=== PATIENT | female | born 2000 | race Caucasian/White ===

== ENCOUNTER 2018-09-14 02:28 | Emergency (ER) | payer BC, MEDICAID ==
[~2018-09-14] VITALS: Ht 154.9 cm; Wt 102.1 kg
--- NOTE | 2018-09-14 02:53 | NUR ---
After talking with ed DR, pt decided to go to [facility] po to see her information systems coordinator. pt left before signing paperwork.
--- NOTE | 2018-09-14 02:56 | ED GU-Female ---
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 She says she was having contraction 5 minutes apart yesterday with her OB doctor and they let her go and told her to to monitor her contractions closely. She says that she noted a gush of blood earlier this evening. Her contractions have not changed as they're still 5 minutes apart and she is not having increased pain or loss of fluid besides a gush of blood. heart tones were done and they were in the 140s. She does not appear to be in active labor. She said that she called her OB nurse and they told her to come here. Allergies and Home Medications Patient Home Medication List Home Medication List Reviewed: Yes Review of Systems Review of Systems Constitutional: no symptoms reported EENTM: no symptoms reported Respiratory: no symptoms reported Cardiovascular: no symptoms reported Gastrointestinal: no symptoms reported Genitourinary: other (vaginal bleeding) Musculoskeletal: no symptoms reported Psychiatric/Neurological: No Symptoms Reported Past Xnmpecy-Okonsp-Fyvfiw Hx Patient Social History Recent Foreign Travel: No Contact w/Someone Who Travel: No Physical Exam Vital Signs Capillary Refill : Height, Weight, BMI Height: '" Weight: lbs. oz. kg; BMI Method: General Appearance: WD/WN, no apparent distress Neck: full range of motion Cardiovascular: normal peripheral pulses Respiratory: no respiratory distress Gastrointestinal: non tender, soft Neurologic/Psychiatric: no motor/sensory deficits Progress/Results/Core Measures Suspected Sepsis SIRS Temperature: Pulse: Respiratory Rate: Blood Pressure / Mean: Results/Orders Vital Signs/I&O Capillary Refill : Progress Note : Progress Note Patient is 39 weeks and said she saw a gush of blood. I told her this could be anything from normal labor to placenta abruption to placenta previa. We have no ultrasound available here and we also have no OB capability. I asked her for the phone number for her OB facility as I told her she would need to be emergently transferred to [facility] where her OB is located at for further evaluation. She refused this stating that she would just drive straight to [facility]. I advised against this as she could be having an obstetric emergency and needed EMS transfer they could further monitor and treat her. If she starts bleeding excessively she would be in her own car and not have proper medical treatment. She did not seem to worried and that I asked her again if s he was sure she saw blood and she confirmed yes that she saw a gush of blood. I told her she should be worried and be seeking obstetric care immediately. I told her I would be willing to transfer her to [facility] or the closest obstetric facility and again she refused. I told her she could be putting the fetus and herself at harm including and disability. Patient accepted the risks of and disability of both herself and the fetus by leaving against my recommendations. Patient walked out of the room right after I walked out of the room without getting discharge paperwork or signing out AGAINST MEDICAL ADVICE. Departure Impression Primary Impression: Vaginal bleeding during Disposition: 07 AGAINST MEDICAL ADVICE Condition: Unchanged Departure-Patient Inst. Referrals: NO,LOCAL PHYSICIAN (PCP/Family) Primary Care Physician BONNIE BUENO DO Sep 14, 2018 02:55
[2018-09-14 03:03] VITALS: BP 118/80
== END 2018-09-14 03:05 | disposition left against medical advice (07) ==
LOC: ER FS 02:32
DX: O46.93 Antepartum hemorrhage, unspecified, third trimester (principal); Z3A.39 39 weeks gestation of pregnancy
CPT/HCPCS: 99282

== ENCOUNTER 2018-09-24 09:52 | Emergency (ER) | payer BC, MEDICAID ==
[~2018-09-24] VITALS: Ht 154.9 cm; Wt 89.4 kg
[2018-09-24] MEDS ORDERED: LACTATED RINGERS 1,000 ML IV STA (10:34)
[2018-09-24 10:47] LABS: BASOPHILS # (AUTO) 0.1 10^3/uL (0.0-0.1); BASOPHILS % (AUTO) 1 % (0-10); EOSINOPHILS # (AUTO) 0.2 10^3/uL (0.0-0.3); EOSINOPHILS % (AUTO) 2 % (0-10); HEMATOCRIT 42 % (35-52); LYMPHOCYTES # (AUTO) 1.7 X 10^3 (1.0-4.0); LYMPHOCYTES % (AUTO) 19 % (12-44); MEAN CORPUSCULAR HEMOGLOBIN 26 PG (25-34); MEAN CORPUSCULAR HGB CONC 34 G/DL (32-36); MEAN CORPUSCULAR VOLUME 76 FL (80-99); MEAN PLATELET VOLUME 8.5 FL (7.4-10.4); MONOCYTES # (AUTO) 0.5 X 10^3 (0.0-1.0); MONOCYTES % (AUTO) 6 % (0-12); NEUTROPHILS # (AUTO) 6.6 X 10^3 (1.8-7.8); NEUTROPHILS % (AUTO) 73 % (42-75); PLATELET COUNT 333 10^3/uL (130-400); RED CELL DISTRIBUTION WIDTH 14.5 % (10.0-14.5)
--- NOTE | 2018-09-24 10:53 | ED General ---
General Chief Complaint: Dizziness/Syncope Stated Complaint: DIZZINESS Nursing Triage Note: Pt ambulatory to rm 10. Pt reports feeling dizzy, nauseated, and having a syncopal episode. Pt feels as if "my head was banging against the wall when I passed out." Pt reports hitting L side of head on wall. Pt reports uncomplicated vaginal delivery 1.5 weeks ago. Nursing Sepsis Screen: No Definite Risk Source of Information: Patient Exam Limitations: No Limitations History of Present Illness Date Seen by Provider: Sep 24, 2018 Time Seen by Provider: 10:26 Initial Comments Reports feeling dizzy and nauseated. She has had an episode of vomiting that was dry heaves. Feels faint and states that she passed out. No injury. She did have vaginal delivery 10 days ago. She is currently breast-feeding. She has had vaginal bleeding after the delivery that has decreased but sometimes will have increasing amount but overall is decreasing. Denies foul-smelling vaginal discharge. Denies dysuria or diarrhea. Timing/Duration: 12-24 Hours, Intermittent Severity: Moderate Associated Systoms: No Chest Pain, No Cough, No Fever/Chills; Nausea/Vomiting; No Shortness of Air; Syncope, Weakness Allergies and Home Medications Allergies Coded Allergies: No Known Drug Allergies (Unverified , 09/24/18) Patient Home Medication List Home Medication List Reviewed: Yes Review of Systems Review of Systems Constitutional: see HPI; No chills, No fever EENTM: no symptoms reported Respiratory: no symptoms reported Cardiovascular: No chest pain; syncope Gastrointestinal: abdominal pain (suprapubic), nausea, vomiting Genitourinary: No dysuria, No frequency : No Musculoskeletal: no symptoms reported Skin: no symptoms reported All Other Systems Reviewed Negative Unless Noted: Yes Past Scgesra-Kiwncv-Kmvcha Hx Past Med/Social Hx: Reviewed Nursing Past Med/Soc Hx Patient Social History Alcohol Use: Denies Use Recreational Drug Use: No 2nd Hand Smoke Exposure: No Recent Foreign Travel: No Contact w/Someone Who Travel: No Recent Infectious Disease Expo: No Recent Hopitalizations: No Seasonal Allergies Seasonal Allergies: No Past Medical History Surgeries: Yes Tonsillectomy Respiratory: No Cardiac: No Neurological: No Genitourinary: No Gastrointestinal: No Musculoskeletal: No Endocrine: No HEENT: No Cancer: No Psychosocial: No Integumentary: No Blood Disorders: No Adverse Reaction/Blood Tranf: No Family Medical History Reviewed Nursing Family Hx Physical Exam Vital Signs Vital Signs - First Documented 09/24/18 10:11 Temp 97.9 Pulse 78 Resp 18 B/P (MAP) 114/78 (90) Pulse Ox 97 O2 Delivery Room Air Capillary Refill : Less Than 3 Seconds Height, Weight, BMI Height: 5'1.00" Weight: 197lbs. oz. 89.930976si; BMI Method:Stated General Appearance: No Apparent Distress, WD/WN HEENT: PERRL/EOMI, Pharynx Normal Neck: Non Tender, Supple Respiratory: Lungs Clear, Normal Breath Sounds Cardiovascular: Regular Rate, Rhythm, No Murmur Gastrointestinal: Non Tender, Soft Back: Normal Inspection, No CVA Tenderness, No Vertebral Tenderness Extremity: Normal Range of Motion, Non Tender Neurologic/Psychiatric: Alert, Oriented x3 Skin: Normal Color, Warm/Dry Progress/Results/Core Measures Suspected Sepsis Recent Fever Within 48 Hours: No Infection Criteria Present: None New/Unexplained Altered Menta: No Sepsis Screen: No Definite Risk SIRS Temperature:97.9 Pulse: 78 Respiratory Rate: 18 Laboratory Tests 09/24/18 10:20: White Blood Count 9.0 Blood Pressure 114 /78 Mean: 90 Laboratory Tests 09/24/18 10:20: Creatinine 0.77, Platelet Count 333, Total Bilirubin 0.4 Results/Orders Lab Results Laboratory Tests Test 09/24/18 10:20 09/24/18 10:40 Range/Units White Blood Count 9.0 4.3-11.0 10^3/uL Red Blood Count 5.48 4.35-5.85 10^6/uL Hemoglobin 14.0 11.5-16.0 G/DL Hematocrit 42 35-52 % Mean Corpuscular Volume 76 L 80-99 FL Mean Corpuscular Hemoglobin 26 25-34 PG Mean Corpuscular Hemoglobin Concent 34 32-36 G/DL Red Cell Distribution Width 14.5 10.0-14.5 % Platelet Count 333 130-400 10^3/uL Mean Platelet Volume 8.5 7.4-10.4 FL Neutrophils (%) (Auto) 73 42-75 % Lymphocytes (%) (Auto) 19 12-44 % Monocytes (%) (Auto) 6 0-12 % Eosinophils (%) (Auto) 2 0-10 % Basophils (%) (Auto) 1 0-10 % Neutrophils # (Auto) 6.6 1.8-7.8 X 10^3 Lymphocytes # (Auto) 1.7 1.0-4.0 X 10^3 Monocytes # (Auto) 0.5 0.0-1.0 X 10^3 Eosinophils # (Auto) 0.2 0.0-0.3 10^3/uL Basophils # (Auto) 0.1 0.0-0.1 10^3/uL Sodium Level 138 135-145 MMOL/L Potassium Level 4.5 3.6-5.0 MMOL/L Chloride Level 107 98-107 MMOL/L Carbon Dioxide Level 20 L 21-32 MMOL/L Anion Gap 11 5-14 MMOL/L Blood Urea Nitrogen 16 7-18 MG/DL Creatinine 0.77 0.60-1.30 MG/DL Estimat Glomerular Filtration Rate > 60 BUN/Creatinine Ratio 21 Glucose Level 96 70-105 MG/DL Calcium Level 9.6 8.5-10.1 MG/DL Corrected Calcium 9.6 8.5-10.1 MG/DL Magnesium Level 2.3 1.8-2.4 MG/DL Total Bilirubin 0.4 0.1-1.0 MG/DL Aspartate Amino Transf (AST/SGOT) 40 H 5-34 U/L Alanine Aminotransferase (ALT/SGPT) 53 0-55 U/L Alkaline Phosphatase 239 H 40-136 U/L C-Reactive Protein High Sensitivity 1.14 H 0.00-0.50 MG/DL Total Protein 7.0 6.4-8.2 GM/DL Albumin 4.0 3.2-4.5 GM/DL Urine Color YELLOW Urine Clarity CLEAR Urine pH 5 5-9 Urine Specific [place] 1.020 1.016-1.022 Urine Protein 2+ H NEGATIVE Urine Glucose (UA) NEGATIVE NEGATIVE Urine Ketones NEGATIVE NEGATIVE Urine Nitrite NEGATIVE NEGATIVE Urine Bilirubin NEGATIVE NEGATIVE Urine Urobilinogen NORMAL NORMAL MG/DL Urine Leukocyte Esterase 3+ H NEGATIVE Urine RBC (Auto) 5+ H NEGATIVE Urine RBC 2-5 H /HPF Urine WBC 25-50 H /HPF Urine Squamous Epithelial Cells 0-2 /HPF Urine Renal Epithelial Cells NONE /HPF Urine Crystals NONE /LPF Urine Bacteria MODERATE H /HPF Urine Casts PRESENT /LPF Urine Hyaline Casts 5-10 H /LPF Urine Granular Casts 0-2 H /LPF Urine White Blood Cell Casts RARE H /LPF Urine Mucus LARGE H /LPF Urine Culture Indicated YES My Orders Orders - SIMA ARMANDO MD Cbc With Automated Diff (09/24/18 10:34) Comprehensive Metabolic Panel (09/24/18 10:34) Hs C Reactive Protein (09/24/18 10:34) Magnesium (09/24/18 10:34) Ua Culture If Indicated (09/24/18 10:34) Us Pelvic (Non Ob)88983 (09/24/18 10:34) Lactated Ringers (Lr 1000 Ml Iv Solution (09/24/18 10:34) Ed Iv/Invasive Line Start (09/24/18 10:34) Urine Culture (09/24/18 10:40) Vital Signs/I&O 09/24/18 10:11 Temp 97.9 Pulse 78 Resp 18 B/P (MAP) 114/78 (90) Pulse Ox 97 O2 Delivery Room Air Capillary Refill : Less Than 3 Seconds Blood Pressure Mean: 90 Progress Note : Progress Note Seen and evaluated. IV, labs, UA, ultrasound pelvis and normal saline 1 L bolus ordered. Monitor patient. 1200: I reviewed labs and ultrasound findings with the patient and family. I have answered all questions. Patient is feeling better currently. I do believe there is a component of dehydration and urinary tract infection. No findings concerning for significant bacterial infection or uterine infection currently and there is no findings consistent with retained products of conception. We will treat urinary tract infection and we did discuss hydration. Discharged home with return precautions. Patient and family verbalize understanding instructions and agreement with plan. Diagnostic Imaging Diagonstic Imaging: Ultrasound Plain Films/CT/US/NM/MRI: pelvis Comments [facility] [place] [place] NAME: RANDA SALDANA [facility] REC#: [id number] PT STATUS: REG ER : 2000 PHYSICIAN: SIMA ARMANDO MD ADMIT DATE: 09/24/18/ER Draft Date of Exam:09/24/18 US PELVIC (NON OB)[id number] PROCEDURE: US PELVIC (NON OB) TECHNIQUE: Multiple real-time grayscale images were obtained over the pelvis in various projections transabdominally. INDICATION: Vaginal delivery one week ago. FINDINGS: The uterus is post-gravid measuring 12.0 x 8.7 x 6.8 cm. There is a moderate amount of complex fluid within the endometrial canal. No abnormal vascularity is present. No myometrial mass is seen. Endometrial thickness in the normal portion of the fundal endometrium is approximately 4 mm. Ovaries cannot be visualized. No adnexal mass or free fluid is seen. IMPRESSION: Moderate complex fluid within endometrial canal, likely representing blood products. No findings to suggest vascularized retained products of conception are identified. Dictated on workstation # [id number] Dict: 09/24/18 1128 Trans: 09/24/18 1132 [id number] Interpreted by: ASTON COLINDRES MD Electronically signed by: Departure Impression Primary Impression: Urinary tract infection Qualified Codes: N30.00 - Acute cystitis without hematuria Additional Impressions: Mild dehydration Syncope Qualified Codes: R55 - Syncope and collapse Disposition: 01 HOME, SELF-CARE Condition: Improved Departure-Patient Inst. Decision time for Depature: 12:04 Referrals: NO,LOCAL PHYSICIAN (PCP/Family) Primary Care Physician Patient Instructions: Dehydration, Adult (DC), Syncope (Fainting) (DC), Urinary Tract Infection, Adult (DC) Add. Discharge Instructions: All discharge instructions reviewed with patient and/or family. Voiced understanding. Take medications as directed. Follow-up with your doctor as scheduled. Return for worse pain, fever, vomiting, weakness, breathing problems or other concerns as needed. Ensure that you drink plenty of fluids. Scripts Cephalexin (Cephalexin) 500 Mg Tablet 500 MG PO BID, #14 TAB 0 Refills Prov: SIMA ARMANDO MD 09/24/18 SIMA ARMANDO MD Sep 24, 2018 10:53
[2018-09-24 11:00] LABS: BILIRUBIN,URINE NEGATIVE (NEGATIVE); CLARITY,URINE CLEAR; COLOR,URINE YELLOW; GLUCOSE, URINE (UA) NEGATIVE (NEGATIVE); KETONES,URINE NEGATIVE (NEGATIVE); LEUKOCYTE ESTERASE ,URINE 3+ (NEGATIVE); NITRITE,URINE NEGATIVE (NEGATIVE); PH,URINE 5 (5-9); PROTEIN,URINE 2+ (NEGATIVE); UROBILINOGEN,URINE NORMAL (NORMAL)
[2018-09-24 11:05] LABS: ALANINE AMINOTRANSFERASE 53 U/L (0-55); ALKALINE PHOSPHATASE 239 U/L (40-136); BILIRUBIN,TOTAL 0.4 MG/DL (0.1-1.0); BUN/CREATININE RATIO 21; CALCIUM 9.6 MG/DL (8.5-10.1); CARBON DIOXIDE 20 MMOL/L (21-32); CHLORIDE 107 MMOL/L (98-107); CREATININE SERUM 0.77 MG/DL (0.60-1.30); GFR ESTIMATED > 60; GLUCOSE 96 MG/DL (70-105); MAGNESIUM 2.3 MG/DL (1.8-2.4); POTASSIUM 4.5 MMOL/L (3.6-5.0); SODIUM 138 MMOL/L (135-145)
[2018-09-24 11:30] LABS: BACTERIA,URINE MODERATE /HPF; SQUAMOUS EPITHELIAL CELL,UR 0-2 /HPF; WBC,URINE 25-50 /HPF
[2018-09-24 11:31] LABS: GRANULAR CASTS,URINE 0-2 /LPF; WHITE BLOOD CELL CASTS, URINE RARE /LPF
--- NOTE | 2018-09-24 11:33 | Diagnostic Imaging Report ---
PROCEDURE: US PELVIC (NON OB) TECHNIQUE: Multiple real-time grayscale images were obtained over the pelvis in various projections transabdominally. INDICATION: Vaginal delivery one week ago. FINDINGS: The uterus is post-gravid measuring 12.0 x 8.7 x 6.8 cm. There is a moderate amount of complex fluid within the endometrial canal. No abnormal vascularity is present. No myometrial mass is seen. Endometrial thickness in the normal portion of the fundal endometrium is approximately 4 mm. Ovaries cannot be visualized. No adnexal mass or free fluid is seen. IMPRESSION: Moderate complex fluid within endometrial canal, likely representing blood products. No findings to suggest vascularized retained products of conception are identified. Dictated by: Dictated on workstation # [id number]
[2018-09-24] MEDS ORDERED: CEPH500T PO (12:06)
[2018-09-24 12:14] VITALS: BP 121/84
== END 2018-09-24 12:13 | disposition home or self-care (01) ==
LOC: EDUNIT# 09:52 → ER 09:53
DX: R55 Syncope and collapse (principal); N39.0 Urinary tract infection, site not specified; E86.0 Dehydration; Z90.89 Acquired absence of other organs
CPT/HCPCS: 36415; 76856; 80053; 81000; 83735; 85025; 86141; 87088; 96360

== ENCOUNTER 2020-03-11 09:34 | Emergency (ER) | payer BC, MEDICAID ==
[~2020-03-11] VITALS: Ht 157.5 cm; Wt 104.3 kg
[~2020-03-11 09:34] MED LIST: CEPH500T PO
[2020-03-11] MEDS: NS IV 1000 ML 1,000 ML IV SCH ×2 (09:58→11:16)
[2020-03-11 10:00] LABS: HEMATOCRIT 43 % (35-52); HEMOGLOBIN 14.4 G/DL (11.5-16.0); MEAN CORPUSCULAR HEMOGLOBIN 26 PG (25-34); WHITE BLOOD COUNT 5.5 10^3/uL (4.3-11.0)
[2020-03-11] MEDS ORDERED: ONDANSETRON 4 MG/2 ML (SDV) Z0FRAN IVP ONE (10:00)
[2020-03-11] MEDS ORDERED: FAMOTIDINE 20MG/2ML IV (PEPCID) IVP ONE (10:00)
[2020-03-11 10:01] LABS: BASOPHILS % (AUTO) 0 % (0-10); EOSINOPHILS % (AUTO) 0 % (0-10); LYMPHOCYTES # (AUTO) 1.2 X 10^3 (1.0-4.0); LYMPHOCYTES % (AUTO) 22 % (12-44); MEAN CORPUSCULAR HGB CONC 33 G/DL (32-36); MEAN PLATELET VOLUME 8.3 FL (7.4-10.4); MONOCYTES # (AUTO) 0.5 X 10^3 (0.0-1.0); MONOCYTES % (AUTO) 9 % (0-12); NEUTROPHILS # (AUTO) 3.7 X 10^3 (1.8-7.8); NEUTROPHILS % (AUTO) 68 % (42-75); PLATELET COUNT 176 10^3/uL (130-400)
[2020-03-11 10:14] LABS: ALANINE AMINOTRANSFERASE 116 U/L (0-55); ALBUMIN 4.4 GM/DL (3.2-4.5); ALKALINE PHOSPHATASE 286 U/L (40-136); BILIRUBIN,TOTAL 0.4 MG/DL (0.1-1.0); BUN/CREATININE RATIO 16; CALCIUM 9.1 MG/DL (8.5-10.1); CARBON DIOXIDE 25 MMOL/L (21-32); CHLORIDE 103 MMOL/L (98-107); CREATININE SERUM 0.62 MG/DL (0.60-1.30); GFR ESTIMATED > 60; GLUCOSE 103 MG/DL (70-105); LIPASE 28 U/L (8-78); POTASSIUM 3.5 MMOL/L (3.6-5.0); SODIUM 139 MMOL/L (135-145)
--- NOTE | 2020-03-11 10:19 | NUR ---
Patient looks flushed. According to the thermometer, she does not have a fever, but the patient is warm to touch. While giving the pepcid, the patients oxygen saturation remained between 90-93%. After giving urine sample, the oxygen saturation went up to 95%.
[2020-03-11 10:27] LABS: BILIRUBIN,URINE 1+ (NEGATIVE); CLARITY,URINE CLEAR; COLOR,URINE YELLOW; GLUCOSE, URINE (UA) NEGATIVE (NEGATIVE); KETONES,URINE NEGATIVE (NEGATIVE); LEUKOCYTE ESTERASE ,URINE NEGATIVE (NEGATIVE); NITRITE,URINE NEGATIVE (NEGATIVE); PROTEIN,URINE NEGATIVE (NEGATIVE)
[2020-03-11] MEDS ORDERED: IOHEXOL 350 MG/ML 100 ML (OMNIPAQUE 350) VIAL IV ONE (11:30)
[2020-03-11] MEDS ORDERED: NS 100 ML (IVPB) BAG IV ONE (11:30)
[2020-03-11] MEDS ORDERED: HOLD METFORMIN - RECEIVED CONTRAST 20 ML VIAL IV SCH (11:30)
--- NOTE | 2020-03-11 11:41 | Diagnostic Imaging Report ---
EXAMINATION: Chest radiograph, portable AP view. DATE: 03/11/2020 11:27 AM INDICATION: 19-year-old female, shortness of breath. COVID positive. COMPARISON: None. FINDINGS: Heart size and mediastinal contours are likely within normal limits. Lung volumes are low. There is no identified pneumothorax. There is no large pleural effusion. There are technical limitations of the exam relating to patient body habitus and difficulties with exposure. There is also likely some motion artifact present. There is airspace consolidation involving the right lower lobe and subtle airspace consolidation in the left lower lobe. IMPRESSION: 1. Airspace consolidation in the right greater than left lower lobes which may relate to pneumonia, aspiration, or other alveolar consolidative process. 2. Low lung volumes on technically limited exam. Dictated by: Dictated on workstation # [id number]
[2020-03-11 11:42] LABS: ABG PCO2 43 MMHG (35-45); ABG PH 7.39 (7.37-7.43)
[2020-03-11 11:44] LABS: ABG BASE EXCESS 0.8 MMOL/L (-2.5-2.5); ABG OXYGEN SATURATION 70 % (94-100); ABG PO2 37 MMHG (79-93); ABG TCO2 27.3 MMOL/L (21.0-31.0); ALLENS TEST YES-POS; INSPIRED O2 ROOM AIR; PATIENT TEMP 37.1; VENTILATOR NO
--- NOTE | 2020-03-11 11:45 | Diagnostic Imaging Report ---
PROCEDURE: CT angiography of the chest with contrast. TECHNIQUE: Multiple contiguous axial images were obtained through the chest after uneventful bolus administration of intravenous contrast. 3D reconstructed CTA MIP acquisitions were also performed. Auto Exposure Controls were utilized during the CT exam to meet ALARA standards for radiation dose reduction. INDICATION: Shortness of air. COVID positive. COMPARISON: Chest radiograph 03/11/2020. FINDINGS: Examination limited by motion and contrast timing. Low lung volumes. No large or central pulmonary emboli are identified. Normal caliber aorta. Normal heart size. No pericardial effusion. Multifocal airspace opacities in both lungs are most dense in the posterior right lower lobe. No pleural effusion or pneumothorax. No acute osseous findings. The visualized upper abdominal contents are unremarkable. IMPRESSION: 1. Examination markedly limited by motion and contrast timing. No large or central pulmonary emboli. 2. Multifocal airspace opacities in both lungs compatible with reported COVID diagnosis. These are most dense in the posterior right lower lobe. Dictated by: Dictated on workstation # [id number]
[2020-03-11] MEDS ORDERED: PIPERACILLIN SODIUM/TAZOBACTAM 4.5 GM in NS (IVPB) 100 ML IV ONE (12:00)
[2020-03-11] MEDS ORDERED: VANCOMYCIN INJECTION 1,000 MG in NS (IVPB) 250 ML IV ONE (12:00)
--- NOTE | 2020-03-11 12:48 | NUR ---
Per physician's orders he does not want to give the vanc anymore. After talking to sales operations manager physician (hospitalist) Zayda, he does not want to admit. He wants to do outpatient BAM infusions.
--- NOTE | 2020-03-11 12:56 | NUR ---
Update was given to patient about what the plan is.
--- NOTE | 2020-03-11 13:00 | ED Cough/URI ---
General Chief Complaint: Fever-Adult/Adol Stated Complaint: COVID + Nursing Triage Note: PT ARRIVED BY PRIVATE VEHICLE WITH CHIEF COMPLAINT OF COVID+ AND FLU + AND IS NOT GETTING BETTER. PT WAS SEEN BY [facility] ON THURSDAY AND TESTED POSITIVE FOR BOTH. THE ONLY MEDICATION THEY GAVE THE PATIENT WAS A "PILL FOR THE FLU" - TAMIFLU. PT'S BOYFRIEND'S MOM (CYNTHIA) HAD HER START TAKING PREDNISONE (SOME LEFT OVER), VITAMIN C, VITAMIN D, ZINC, PEPCID AND ASPIRIN, BUT SHE THREW UP SHORTLY AFTER. PT HAS BEEN RUNNING A FEVER AT NIGHT AND LAST HAD A FEVER AROUND [id number] THIS MORNING AND TOOK TYLENOL. PT CURRENTLY DOES NOT HAVE A FEVER, BUT FEEL WARM TO THE TOUCH. PT HAS NOT HAD ALOT OF ENERGY AND IS NOT GETTING BETTER. PT IS TACHY AND RUNNING AROUND 93-94% ON ROOM AIR. Sepsis Screen: Possible Severe Sepsis Risk Source: patient History of Present Illness Date Seen by Provider: Mar 11, 2020 Time Seen by Provider: 09:45 Initial Comments Patient is a 19-year-old female with recent diagnosis of influenza A and COVID 6 days ago who presents with progressive fatigue, shortness of breath and fever of 101.9 last evening. Patient also complains of chest wall pain worse with deep breathing and nausea and vomiting earlier today. The patient reports occasional abdominal pain. Denies headache, sore throat, neck pains, stiffness, rash, abdom inal pain. Denies flank pain, urinary frequency urgency or dysuria. No other acute symptoms or complaints. No history of asthma chronic lung disease. Patient does not smoke tobacco but has previously vaped. Timing/Duration: getting worse Severity/Quality: moderate Prior Episodes/Possible Cause: no prior episodes Modifying Factors: Improves With Coughing Associated Symptoms: cough, fever/chills, shortness of breath Allergies and Home Medications Allergies Coded Allergies: No Known Drug Allergies (Unverified , 09/24/18) Home Medications Cephalexin 500 Mg Tablet, 500 MG PO BID Prescribed by: SIMA ARMANDO on 09/24/18 1206 Patient Home Medication List Home Medication List Reviewed: Yes Review of Systems Review of Systems Constitutional: see HPI EENTM: see HPI Respiratory: see HPI Cardiovascular: see HPI Gastrointestinal: see HPI Genitourinary: see HPI Musculoskeletal: see HPI Skin: see HPI Psychiatric/Neurological: See HPI Hematologic/Lymphatic: See HPI Immunological/Allergic: see HPI All Other Systems Reviewed Negative Unless Noted: Yes Past Fexmhkp-Hrsaaf-Meblqo Hx Past Med/Social Hx: Reviewed Nursing Past Med/Soc Hx Patient Social History Alcohol Use: Denies Use Recreational Drug Use: No Smoking Status: Never a Smoker 2nd Hand Smoke Exposure: No Recent Foreign Travel: No Contact w/Someone Who Travel: No Recent Infectious Disease Expo: No Recent Hopitalizations: No Physical Abuse: No Sexual Abuse: No Mistreated: No Fear: No Seasonal Allergies Seasonal Allergies: No Past Medical History Surgeries: Yes Tonsillectomy Respiratory: No Cardiac: No Neurological: No Genitourinary: No Gastrointestinal: No Musculoskeletal: No Endocrine: No HEENT: No Cancer: No Psychosocial: No Integumentary: No Blood Disorders: No Adverse Reaction/Blood Tranf: No Physical Exam Vital Signs - First Documented 03/11/20 09:35 Temp 37.1 Pulse 110 Resp 19 B/P (MAP) 114/69 (84) Pulse Ox 93 O2 Delivery Room Air Capillary Refill : Less Than 3 Seconds Height: 5'1.00" Weight: 197lbs. oz. 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, no motor/sensory deficits, alert, oriented x 3 Skin: warm/dry, diaphoresis Focused Exam Sepsis Stage: Ruled Out Lactate Level 03/11/20 09:42: Lactic Acid Level 0.67 Time of Focused Exam: 10:00 Lactic Acid Level Laboratory Tests Test 03/11/20 09:42 Lactic Acid Level 0.67 MMOL/L (0.50-2.00) Progress/Results/Core Measures Suspected Sepsis Recent Fever Within 48 Hours: Yes Infection Criteria Present: Suspected New Infection New/Unexplained Altered Menta: No Sepsis Screen: Possible Severe Sepsis Risk SIRS Temperature: Pulse: 110 Respiratory Rate: 19 Laboratory Tests 03/11/20 09:42: White Blood Count 5.5 Blood Pressure 114 /69 Mean: 84 03/11/20 09:42: Lactic Acid Level 0.67 Laboratory Tests 03/11/20 09:42: Creatinine 0.62, Platelet Count 176, Total Bilirubin 0.4 Results/Orders Lab Results Laboratory Tests Test 03/11/20 09:42 03/11/20 10:10 03/11/20 10:40 Range/Units White Blood Count 5.5 4.3-11.0 10^3/uL Red Blood Count 5.45 4.35-5.85 10^6/uL Hemoglobin 14.4 11.5-16.0 G/DL Hematocrit 43 35-52 % Mean Corpuscular Volume 19 L 80-99 FL Mean Corpuscular Hemoglobin 26 25-34 PG Mean Corpuscular Hemoglobin Concent 33 32-36 G/DL Red Cell Distribution Width 13.2 10.0-14.5 % Platelet Count 176 130-400 10^3/uL Mean Platelet Volume 8.3 7.4-10.4 FL Immature Granulocyte % (Auto) 0 % Neutrophils (%) (Auto) 68 42-75 % Lymphocytes (%) (Auto) 22 12-44 % Monocytes (%) (Auto) 9 0-12 % Eosinophils (%) (Auto) 0 0-10 % Basophils (%) (Auto) 0 0-10 % Neutrophils # (Auto) 3.7 1.8-7.8 X 10^3 Lymphocytes # (Auto) 1.2 1.0-4.0 X 10^3 Monocytes # (Auto) 0.5 0.0-1.0 X 10^3 Eosinophils # (Auto) 0.0 0.0-0.3 10^3/uL Basophils # (Auto) 0.0 0.0-0.1 10^3/uL Immature Granulocyte # (Auto) 0.0 0.0-0.1 10^3/uL Sodium Level 139 135-145 MMOL/L Potassium Level 3.5 L 3.6-5.0 MMOL/L Chloride Level 103 98-107 MMOL/L Carbon Dioxide Level 25 21-32 MMOL/L Anion Gap 11 5-14 MMOL/L Blood Urea Nitrogen 10 7-18 MG/DL Creatinine 0.62 0.60-1.30 MG/DL Estimat Glomerular Filtration Rate > 60 BUN/Creatinine Ratio 16 Glucose Level 103 70-105 MG/DL Lactic Acid Level 0.67 0.50-2.00 MMOL/L Calcium Level 9.1 8.5-10.1 MG/DL Corrected Calcium 8.8 8.5-10.1 MG/DL Total Bilirubin 0.4 0.1-1.0 MG/DL Aspartate Amino Transf (AST/SGOT) 88 H 5-34 U/L Alanine Aminotransferase (ALT/SGPT) 116 H 0-55 U/L Alkaline Phosphatase 286 H 40-136 U/L Total Protein 7.0 6.4-8.2 GM/DL Albumin 4.4 3.2-4.5 GM/DL Lipase 28 8-78 U/L Urine Color YELLOW Urine Clarity CLEAR Urine pH 6.0 5-9 Urine Specific [place] 1.015 L 1.016-1.022 Urine Protein NEGATIVE NEGATIVE Urine Glucose (UA) NEGATIVE NEGATIVE Urine Ketones NEGATIVE NEGATIVE Urine Nitrite NEGATIVE NEGATIVE Urine Bilirubin 1+ H NEGATIVE Urine Urobilinogen 0.2 < = 1.0 MG/DL Urine Leukocyte Esterase NEGATIVE NEGATIVE Urine RBC (Auto) NEGATIVE NEGATIVE Urine RBC NONE /HPF Urine WBC NONE /HPF Urine Crystals NONE /LPF Urine Bacteria NONE /HPF Urine Casts NONE /LPF Urine Mucus SMALL H /LPF Urine Culture Indicated NO Blood Gas Puncture Site LT RAD Blood Gas Patient Temperature 37.1 Arterial Blood pH 7.39 7.37-7.43 Arterial Blood Partial Pressure CO2 43 35-45 MMHG Arterial Blood Partial Pressure O2 37 *L 79-93 MMHG Arterial Blood HCO3 26 23-27 MMOL/L Arterial Blood Total CO2 27.3 21.0-31.0 MMOL/L Arterial Blood Oxygen Saturation 70 L 94-100 % Arterial Blood Base Excess 0.8 -2.5-2.5 MMOL/L Juan A Test YES-POS Blood Gas Ventilator Setting NO Blood Gas Inspired Oxygen ROOM AIR My Orders Orders - GUTIERREZ PACE Iv 1000 Ml (Sodium Chloride 0.9%) (03/11/20 10:00) Cbc With Automated Diff (03/11/20 09:50) Comprehensive Metabolic Panel (03/11/20 09:50) Urinalysis (03/11/20 09:50) Urine Bedside (03/11/20 09:50) Lipase (03/11/20 09:51) Famotidine Injection (Pepcid Injection) (03/11/20 10:00) Ondansetron Injection (Zofran Injectio (03/11/20 10:00) Abg Ph (03/11/20 10:27) Chest 1 View Ap/Pa Only (03/11/20 10:27) Ct Angio Chest W (03/11/20 10:47) Iohexol Injection (Omnipaque 350 Mg/Ml 1 (03/11/20 11:30) Received Contrast (Hold Metformin- Contr (03/11/20 11:30) Ns (Ivpb) (Sodium Chloride 0.9% Ivpb Bag (03/11/20 11:30) Blood Culture (03/11/20 11:37) Lactic Acid Analyzer (03/11/20 11:37) Arterial Blood Gas (03/11/20 11:39) Vancomycin Injection (Vancomycin Injecti (03/11/20 12:00) Piperacillin Sodium/Tazobactam (Zosyn Vi (03/11/20 12:00) Dexamethasone Injection (Decadron Inje (03/11/20 12:30) Medications Given in ED Current Medications Medications Dose Ordered Sig/Leobardo Route Start Time Stop Time Status Last Admin Dose Admin Famotidine 20 mg ONCE ONCE IVP 03/11/20 10:00 03/11/20 10:01 DC 03/11/20 09:58 20 MG Iohexol 100 ml ONCE ONCE IV 03/11/20 11:30 03/11/20 11:31 DC 03/11/20 11:33 100 ML Ondansetron HCl 8 mg ONCE ONCE IVP 03/11/20 10:00 03/11/20 10:01 DC 03/11/20 09:58 8 MG Piperacillin Sod/ Tazobactam Sod 4.5 gm/Sodium Chloride 100 ml @ 200 mls/hr ONCE ONCE IV 03/11/20 12:00 03/11/20 12:29 DC 03/11/20 12:26 200 MLS/HR Sodium Chloride 100 ml ONCE ONCE IV 03/11/20 11:30 03/11/20 11:31 DC 03/11/20 11:33 80 ML Vital Signs/I&O 03/11/20 09:35 Temp 37.1 Pulse 110 Resp 19 B/P (MAP) 114/69 (84) Pulse Ox 93 O2 Delivery Room Air Capillary Refill : Less Than 3 Seconds Blood Pressure Mean: 84 Departure Communication (Admissions) Chest x-ray/CTA chest reviewed: No PE, patient with diffuse alveolar disease with multilobar infiltrates. Heart rate improved with fluids, patient not requiring oxygen. No vomiting in the emergency department. Clinically, the patient clinically is improved. Patient discussed with Dr. Priest financial management consultant for Dr. Wolff. Recommendations are for outpatient convalescent plasma infusion and hold monitoring to be coordinated by PCP tomorrow. Antibiotics given prior to ED departure. Strict return precautions reviewed. Patient verbalizes understanding agreement discharge instructions prior to departure.. Communication (PCP) Impression Primary Impression: Pneumonia Additional Impressions: COVID-19 Nausea & vomiting Disposition: 01 HOME, SELF-CARE Condition: Stable Departure-Patient Inst. Referrals: NO,LOCAL PHYSICIAN (PCP) Primary Care Physician Patient Instructions: Community-Acquired Pneumonia in Adults, Coronavirus Disease 2019 (COVID-19) Overview, Nausea and Vomiting, Adult (DC) Add. Discharge Instructions: Please take newly prescribed medications as directed and contact outpatient infusion center to schedule plasma infusion tomorrow for treatment of COVID. 's monitor home O2 saturation levels with digital pulse oximeter return to the ED if you're unable to maintain oxygen saturation greater than 90%, are unable to keep medications down without vomiting or have or worsening or concerning symptoms. Continue self quarantine until 3 days after all symptoms have resolved. All discharge instructions reviewed with patient and/or family. Voiced understanding. Scripts Ondansetron (Ondansetron Odt) 4 Mg Tab.rapdis 4 MG PO BID, #10 TAB Prov: GUTIERREZ PACE DO 03/11/20 Doxycycline Hyclate (Doxycycline Hyclate) 100 Mg Tablet 100 MG PO BID, #20 TAB Prov: GUTIERREZ PACE DO 03/11/20 Albuterol Sulfate (PROAIR HFA) 1 Puff Puff 2 PUFF IH Q4H, #1 PUFF 1 PUFF = 90 MCG Prov: GUTIERREZ PACE DO 03/11/20 GUTIERREZ PACE DO Mar 11, 2020 13:00
[2020-03-11] MEDS ORDERED: RT-ALBUINH IH (13:20)
[2020-03-11] MEDS ORDERED: DOXY100T2 PO (13:20)
[2020-03-11] MEDS ORDERED: ONDA4TAB11 PO (13:20)
[2020-03-11 13:30] VITALS: BP 117/78
[2020-03-11] MEDS ORDERED: DOXYCYCLINE 100 MG (VIBRAMYCIN) TABLET PO SCH (17:00)
[2020-03-12 08:35] LABS: MEAN CORPUSCULAR VOLUME 79 FL (80-99)
== END 2020-03-11 13:30 | disposition home or self-care (01) ==
LOC: EDUNIT# 09:34 → ER FS 09:36
DX: J18.9 Pneumonia, unspecified organism (principal); U07.1 COVID-19; R11.2 Nausea with vomiting, unspecified
CPT/HCPCS: 36415; 71045; 71275; 80053; 81000; 82800; 82805; 83605; 83690; 84703; 85025; 87040

== ENCOUNTER → 2020-06-25 | Outpatient (CLI) | payer BC ==
[~2020-06-25] MED LIST changes: +DOXY100T2 PO; +ONDA4TAB11 PO; +RT-ALBUINH IH
== END ==
LOC: LABNPT 15:01
PROVIDERS: ATTEND Family Medicine
DX: Z01.89 Encounter for other specified special examinations (principal)
CPT/HCPCS: 87491

== ENCOUNTER 2020-10-01 23:16 | Emergency (ER) | payer SELFPAY ==
[~2020-10-01] VITALS: Ht 155 cm; Wt 102.0 kg
[2020-10-02 00:26] LABS: BILIRUBIN,URINE NEGATIVE (NEGATIVE); CLARITY,URINE SL CLOUDY; COLOR,URINE ORANGE; GLUCOSE, URINE (UA) NEGATIVE (NEGATIVE); KETONES,URINE NEGATIVE (NEGATIVE); LEUKOCYTE ESTERASE ,URINE NEGATIVE (NEGATIVE); NITRITE,URINE NEGATIVE (NEGATIVE); PROTEIN,URINE NEGATIVE (NEGATIVE)
[2020-10-02 00:38] LABS: RBC,URINE >100 /HPF
[2020-10-02 00:39] LABS: BACTERIA,URINE TRACE /HPF; WBC,URINE 0-2 /HPF
[2020-10-02 01:19] LABS: BASOPHILS # (AUTO) 0.1 10^3/uL (0.0-0.1); BASOPHILS % (AUTO) 1 % (0-10); EOSINOPHILS # (AUTO) 0.2 10^3/uL (0.0-0.3); EOSINOPHILS % (AUTO) 1 % (0-10); HEMATOCRIT 39 % (35-52); HEMOGLOBIN 13.1 g/dL (11.5-16.0); LYMPHOCYTES # (AUTO) 3.3 10^3/uL (1.0-4.0); LYMPHOCYTES % (AUTO) 26 % (12-44); MEAN CORPUSCULAR HEMOGLOBIN 27 pg (25-34); MEAN CORPUSCULAR HGB CONC 33 g/dL (32-36); MEAN CORPUSCULAR VOLUME 80 fL (80-99); MEAN PLATELET VOLUME 8.5 fL (9.0-12.2); MONOCYTES # (AUTO) 0.8 10^3/uL (0.0-1.0); MONOCYTES % (AUTO) 6 % (0-12); NEUTROPHILS # (AUTO) 8.4 10^3/uL (1.8-7.8); NEUTROPHILS % (AUTO) 66 % (42-75); PLATELET COUNT 216 10^3/uL (130-400); WHITE BLOOD COUNT 12.7 10^3/uL (4.3-11.0)
--- NOTE | 2020-10-02 02:33 | ED GU-Female ---
General Chief Complaint: Female Reproductive Stated Complaint: POSS MISCARRIAGE,VAG BLEEDING,CRAMPING Source: patient Exam Limitations: no limitations History of Present Illness Date Seen by Provider: Oct 02, 2020 Time Seen by Provider: 00:21 Initial Comments This 20-year-old young lady at about 12 weeks gestational age presents to the emergency room with cramping and bleeding that started last night around 19:00. She reports an intrauterine gestation was identified by ultrasound in the clinic with Dr. Medellin. She denies any additional symptoms at this time. Allergies and Home Medications Allergies Coded Allergies: No Known Drug Allergies (Unverified , 09/24/18) Home Medications Albuterol Sulfate 1 Puff Puff, 2 PUFF IH Q4H 1 PUFF = 90 MCG Prescribed by: GUTIERREZ PACE on 03/11/20 1320 Cephalexin 500 Mg Tablet, 500 MG PO BID Prescribed by: SIMA ARMANDO on 09/24/18 1206 Doxycycline Hyclate 100 Mg Tablet, 100 MG PO BID Prescribed by: GUTIERREZ PACE on 03/11/20 1320 Ondansetron 4 Mg Tab.rapdis, 4 MG PO BID Prescribed by: GUTIERREZ PACE on 03/11/20 1320 Patient Home Medication List Home Medication List Reviewed: Yes Review of Systems Review of Systems Constitutional: no symptoms reported EENTM: no symptoms reported Respiratory: no symptoms reported Cardiovascular: no symptoms reported Gastrointestinal: no symptoms reported Genitourinary: see HPI : Yes Musculoskeletal: no symptoms reported Skin: no symptoms reported Psychiatric/Neurological: No Symptoms Reported Endocrine: No Symptoms Reported Past Basrvqf-Adnmfp-Pgdfsz Hx Seasonal Allergies Seasonal Allergies: No Past Medical History Surgeries: Yes Tonsillectomy Respiratory: No Cardiac: No Neurological: No Genitourinary: No Gastrointestinal: No Musculoskeletal: No Endocrine: No HEENT: No Cancer: No Psychosocial: No Integumentary: No Blood Disorders: No Adverse Reaction/Blood Tranf: No Physical Exam Vital Signs Vital Signs - First Documented 10/01/20 23:29 Temp 36.9 Pulse 104 Resp 20 B/P (MAP) 131/76 (94) Pulse Ox 96 O2 Delivery Room Air Capillary Refill : Height, Weight, BMI Height: 5'1.00" Weight: 197lbs. oz. 89.811070oh; 42.00 BMI Method:Stated General Appearance: WD/WN, no apparent distress HEENT: normal ENT inspection Cardiovascular: regular rate, rhythm, no edema Respiratory: lungs clear, normal breath sounds, no respiratory distress Gastrointestinal: non tender, soft Extremities: normal inspection, no pedal edema Neurologic/Psychiatric: alert, normal mood/affect, oriented x 3 Skin: normal color, warm/dry heart tones around 160 by Doppler Progress/Results/Core Measures Suspected Sepsis SIRS Temperature: Pulse: Respiratory Rate: Laboratory Tests 10/02/20 01:12: White Blood Count 12.7H Blood Pressure / Mean: Laboratory Tests 10/02/20 01:12: Platelet Count 216 Results/Orders Lab Results Laboratory Tests Test 10/01/20 23:41 10/02/20 01:12 Range/Units Urine Color ORANGE Urine Clarity SL CLOUDY Urine pH 6.0 5-9 Urine Specific [place] 1.015 L 1.016-1.022 Urine Protein NEGATIVE NEGATIVE Urine Glucose (UA) NEGATIVE NEGATIVE Urine Ketones NEGATIVE NEGATIVE Urine Nitrite NEGATIVE NEGATIVE Urine Bilirubin NEGATIVE NEGATIVE Urine Urobilinogen 0.2 < = 1.0 MG/DL Urine Leukocyte Esterase NEGATIVE NEGATIVE Urine RBC (Auto) 3+ H NEGATIVE Urine RBC >100 H /HPF Urine WBC 0-2 /HPF Urine Crystals NONE /LPF Urine Bacteria TRACE /HPF Urine Casts NONE /LPF Urine Mucus NEGATIVE /LPF Urine Culture Indicated NO White Blood Count 12.7 H 4.3-11.0 10^3/uL Red Blood Count 4.91 3.80-5.11 10^6/uL Hemoglobin 13.1 11.5-16.0 g/dL Hematocrit 39 35-52 % Mean Corpuscular Volume 80 80-99 fL Mean Corpuscular Hemoglobin 27 25-34 pg Mean Corpuscular Hemoglobin Concent 33 32-36 g/dL Red Cell Distribution Width 12.8 10.0-14.5 % Platelet Count 216 130-400 10^3/uL Mean Platelet Volume 8.5 L 9.0-12.2 fL Immature Granulocyte % (Auto) 0 % Neutrophils (%) (Auto) 66 42-75 % Lymphocytes (%) (Auto) 26 12-44 % Monocytes (%) (Auto) 6 0-12 % Eosinophils (%) (Auto) 1 0-10 % Basophils (%) (Auto) 1 0-10 % Neutrophils # (Auto) 8.4 H 1.8-7.8 10^3/uL Lymphocytes # (Auto) 3.3 1.0-4.0 10^3/uL Monocytes # (Auto) 0.8 0.0-1.0 10^3/uL Eosinophils # (Auto) 0.2 0.0-0.3 10^3/uL Basophils # (Auto) 0.1 0.0-0.1 10^3/uL Immature Granulocyte # (Auto) 0.1 0.0-0.1 10^3/uL Human Chorionic Gonadotropin, Quant 23560 H <5 MIU/ML My Orders Orders - JOSUE GUZMAN MD Cbc With Automated Diff (10/02/20 00:21) Hcg,Quantitative (10/02/20 00:21) Ua Culture If Indicated (10/02/20 00:21) Abo Rh Type (10/02/20 00:21) Vital Signs/I&O Capillary Refill : Progress Note : Progress Note Blood type was O+. Work-up was unremarkable. heart tones were found at around 160. Patient was given reassurance and was instructed to follow-up with Dr. Medellin later today. Departure Impression Primary Impression: Vaginal bleeding during Additional Impression: Cramping affecting , antepartum Disposition: HOME, SELF-CARE Condition: Stable Departure-Patient Inst. Decision time for Depature: 02:32 Referrals: COLBY MEDELLIN MD (PCP/Family) Primary Care Physician Patient Instructions: Bleeding In Early Add. Discharge Instructions: Drink plenty of clear liquids to stay well-hydrated. You may take Tylenol (acetaminophen) up to 1000 mg every 6 hours as needed for pain and cramping. Call Dr. Medellin's office first thing this morning for further instructions. Return to care if you have worsening symptoms. Call with questions or concerns. All discharge instructions reviewed with patient and/or family. Voiced understanding. Copy Copies To 1: COLBY MEDELLIN MD, JOSHUA T MD Oct 02, 2020 02:33
[2020-10-02 02:42] VITALS: BP 119/72
== END 2020-10-02 02:42 | disposition home or self-care (01) ==
LOC: EDUNIT# 23:16 → ER 23:20
DX: O46.91 Antepartum hemorrhage, unspecified, first trimester (principal); O26.891 Other specified pregnancy related conditions, first trimester; Z3A.12 12 weeks gestation of pregnancy
CPT/HCPCS: 36415; 81000; 84702; 85025; 86900; 86901; 99282

== ENCOUNTER → 2020-11-12 | Outpatient (CLI) | payer OTHER | LOC: LABNPT 15:03 | PROVIDERS: ATTEND Family Medicine | DX: N89.8 Other specified noninflammatory disorders of vagina (principal) | CPT/HCPCS: 87210 ==

== ENCOUNTER → 2020-12-06 | Outpatient (CLI) | payer OTHER ==
--- NOTE | 2020-12-06 11:31 | Diagnostic Imaging Report ---
INDICATION: patient, survey. TECHNIQUE: Multiple real-time grayscale images were obtained over the gravid uterus. COMPARISON: None during this . FINDINGS: A single live intrauterine fetus is seen measuring 23 weeks 0 days in size by composite measurements. Sonographic EDC is 04/04/2021. The fetus is in cephalic presentation. Amniotic fluid is qualitatively normal. The placenta is posterior with no evidence of previa. heart rate is 143 BPM. Cervical length is 4.3 cm. The distance from the tip of the cervix to the internal os was 7 cm. survey showed normal-appearing kidneys and bladder and stomach. Intracranial ventricles appeared normal. Four-chamber heart view appeared normal. Three-vessel cord and cord insertion were normal. The views of the spine were unremarkable. Maternal adnexa were not well seen. Biometrical measurements are as follows: Biparietal 5.60 cm, age 23 weeks 1 days. Head circumference 20.56 cm, age 22 weeks 5 days. Abdominal circumference 17.50 cm, age 22 weeks 3 days. Femur length 4.16 cm, age 23 weeks 4 days. Sonographic estimate age: 23 weeks 0 days. Sonographic estimated date of delivery: 04/04/2021. Estimated Weight: 544 gm (+/- 80 gm). LMP percentile: 86%. heart rate: 143 beats per minute. number: 1 of 1. IMPRESSION: Single live intrauterine fetus measuring 23 weeks 0 days in size with no detectable abnormalities. Dictated by: Dictated on workstation # [id number]
== END ==
LOC: RAD FS 07:57
PROVIDERS: ATTEND Registered Nurse Emergency
DX: Z34.92 Encounter for supervision of normal pregnancy, unspecified, second trimester (principal); Z3A.23 23 weeks gestation of pregnancy
CPT/HCPCS: 76805

== ENCOUNTER 2021-04-15 07:10 | Inpatient (IN) | payer OTHER ==
[2021-04-15] VITALS (60 sets, daily range): BP systolic 98–148; BP diastolic 54–87
[~2021-04-15] VITALS: Ht 154.9 cm; Wt 108.6 kg
[2021-04-15] MEDS ORDERED: D5 LR IV SOLUTION 1,000 ML IV ONE (07:36)
[2021-04-15] MEDS ORDERED: MINERAL OIL CONCENTRATE 99.9% 15 ML UDC TOP PRN (07:45)
[2021-04-15] MEDS: D5 LR IV SOLUTION 1,000 ML IV SCH ×3 (07:55→23:25)
[2021-04-15 08:05] LABS: BASOPHILS # (AUTO) 0.1 10^3/uL (0.0-0.1); BASOPHILS % (AUTO) 1 % (0-10); EOSINOPHILS # (AUTO) 0.2 10^3/uL (0.0-0.3); EOSINOPHILS % (AUTO) 1 % (0-10); HEMATOCRIT 38 % (35-52); HEMOGLOBIN 12.2 g/dL (11.5-16.0); LYMPHOCYTES # (AUTO) 2.3 10^3/uL (1.0-4.0); LYMPHOCYTES % (AUTO) 15 % (12-44); MEAN CORPUSCULAR HEMOGLOBIN 24 pg (25-34); MEAN CORPUSCULAR HGB CONC 32 g/dL (32-36); MEAN CORPUSCULAR VOLUME 74 fL (80-99); MEAN PLATELET VOLUME 8.7 fL (9.0-12.2); MONOCYTES # (AUTO) 0.7 10^3/uL (0.0-1.0); MONOCYTES % (AUTO) 5 % (0-12); NEUTROPHILS % (AUTO) 78 % (42-75); PLATELET COUNT 190 10^3/uL (130-400); WHITE BLOOD COUNT 15.4 10^3/uL (4.3-11.0)
[2021-04-15] MEDS ORDERED: OXYTOCIN PRE-MIX DRIP 500 ML IV SCH (08:15)
[2021-04-15] MEDS ORDERED: fentaNYL 2 mcg/ml BUPIVA 0.125 100 ML ONE (08:35)
[2021-04-15 08:39] LABS: ANISOCYTOSIS SLIGHT; EOSINOPHILS % (MANUAL) 1 %; LYMPHOCYTES % (MANUAL) 12 %; MONOCYTES % (MANUAL) 3 %; NEUTROPHILS % (MANUAL) 84 %
[2021-04-15] MEDS: EPIDURAL (fentaNYL 2 MCG/ML BUPIVA 0.125%)100 ML BAG EPI SCH ×2 (09:21→16:47)
[2021-04-15] MEDS ORDERED: diphenhydrAMINE 50 MG/ML INJ (BENADRYL) IV PRN (09:30)
[2021-04-15] MEDS ORDERED: LACTATED RINGERS 1,000 ML IV SCH (09:30)
[2021-04-15] MEDS ORDERED: ONDANSETRON 4 MG/2 ML (SDV) Z0FRAN IV PRN (09:30)
[2021-04-15] MEDS ORDERED: METOCLOPRAMIDE INJ 10 MG/2 ML (REGLAN) IV PRN (09:30)
[2021-04-15] MEDS ORDERED: NALOXONE 0.4 MG/ML 1 ML (NARCAN) VIAL IV PRN ×3 (09:30→18:30)
[2021-04-15 11:27] LABS: BILIRUBIN,URINE NEGATIVE (NEGATIVE); CLARITY,URINE CLEAR; COLOR,URINE YELLOW; GLUCOSE, URINE (UA) NEGATIVE (NEGATIVE); KETONES,URINE TRACE (NEGATIVE); LEUKOCYTE ESTERASE ,URINE TRACE (NEGATIVE); NITRITE,URINE NEGATIVE (NEGATIVE); PH,URINE 6.5 (5-9); PROTEIN,URINE NEGATIVE (NEGATIVE)
[2021-04-15 11:44] LABS: BACTERIA,URINE LARGE /HPF
--- NOTE | 2021-04-15 12:31 | History & Physical-OB ---
OB - Chief Complaint & HPI Date/Time Date of Admission: Date of Admission: Apr 15, 2021 at 07:10 Chief Complaint/History Expected Date of Delivery: Apr 11, 2021 Gestational Age in Weeks: 40 Gestational Age in Days: 4 Allergies and Home Medications Allergies Coded Allergies: No Known Drug Allergies (Unverified , 09/24/18) Patient Home Medication List Albuterol Sulfate (Proair Hfa) 1 Puff Puff, 2 PUFF IH Q4H Prescribed by: GUTIERREZ PACE on 03/11/20 1320 Cephalexin (Cephalexin) 500 Mg Tablet, 500 MG PO BID Prescribed by: SIMA ARMANDO on 09/24/18 1206 Doxycycline Hyclate (Doxycycline Hyclate) 100 Mg Tablet, 100 MG PO BID Prescribed by: GUTIERREZ PACE on 03/11/20 1320 Ondansetron (Ondansetron Odt) 4 Mg Tab.rapdis, 4 MG PO BID Prescribed by: GUTIERREZ PACE on 03/11/20 1320 OB - History Delivery History Adverse Rxn to Tranfusion: No Social History/Family History 2nd Hand Smoke Exposure: No Immunizations Influenza Vaccine Up-to-Date: Yes; Up-to-Date Hepatitis A: Yes Hepatitis B: Yes OB - Admission Exam Physical Exam Vitals: Vital Signs 04/15/21 04/15/21 04/15/21 10:03 10:18 11:50 Temp 36.3 Pulse 82 Resp 18 B/P (MAP) 112/59 (76) Pulse Ox 96 O2 Delivery Room Air Labs Laboratory Tests Test 04/15/21 07:50 04/15/21 08:00 Range/Units White Blood Count 15.4 H 4.3-11.0 10^3/uL Red Blood Count 5.08 3.80-5.11 10^6/uL Hemoglobin 12.2 11.5-16.0 g/dL Hematocrit 38 35-52 % Mean Corpuscular Volume 74 L 80-99 fL Mean Corpuscular Hemoglobin 24 L 25-34 pg Mean Corpuscular Hemoglobin Concent 32 32-36 g/dL Red Cell Distribution Width 14.0 10.0-14.5 % Platelet Count 190 130-400 10^3/uL Mean Platelet Volume 8.7 L 9.0-12.2 fL Immature Granulocyte % (Auto) 1 % Neutrophils (%) (Auto) 78 H 42-75 % Lymphocytes (%) (Auto) 15 12-44 % Monocytes (%) (Auto) 5 0-12 % Eosinophils (%) (Auto) 1 0-10 % Basophils (%) (Auto) 1 0-10 % Neutrophils # (Auto) 12.0 H 1.8-7.8 10^3/uL Lymphocytes # (Auto) 2.3 1.0-4.0 10^3/uL Monocytes # (Auto) 0.7 0.0-1.0 10^3/uL Eosinophils # (Auto) 0.2 0.0-0.3 10^3/uL Basophils # (Auto) 0.1 0.0-0.1 10^3/uL Immature Granulocyte # (Auto) 0.2 H 0.0-0.1 10^3/uL Neutrophils % (Manual) 84 % Lymphocytes % (Manual) 12 % Monocytes % (Manual) 3 % Eosinophils % (Manual) 1 % Anisocytosis SLIGHT Blood Morphology Comment Urine Color YELLOW Urine Clarity CLEAR Urine pH 6.5 5-9 Urine Specific [place] 1.020 1.016-1.022 Urine Protein NEGATIVE NEGATIVE Urine Glucose (UA) NEGATIVE NEGATIVE Urine Ketones TRACE H NEGATIVE Urine Nitrite NEGATIVE NEGATIVE Urine Bilirubin NEGATIVE NEGATIVE Urine Urobilinogen 1.0 < = 1.0 MG/DL Urine Leukocyte Esterase TRACE H NEGATIVE Urine RBC (Auto) NEGATIVE NEGATIVE Urine RBC NONE /HPF Urine WBC 2-5 /HPF Urine Squamous Epithelial Cells 2-5 /HPF Urine Crystals NONE /LPF Urine Bacteria LARGE H /HPF Urine Casts NONE /LPF Urine Mucus SMALL H /LPF Urine Culture Indicated YES DENISE EDGAR DO Apr 15, 2021 12:31
[2021-04-15] MEDS ORDERED: BUPIVACAINE 0.5% 30 ML (SENSORCAINE) VIAL ONE (15:54)
[2021-04-15] MEDS ORDERED: fentaNYL INJ 100 MCG/2 ML AMP ONE (15:59)
[2021-04-15] MEDS ORDERED: LIDOCAINE/EPI 2% 1:200,00 (XYLOCAINE) 10 ML VIAL ONE (17:19)
--- NOTE | 2021-04-15 18:29 | OB Labor & Delivery Record ---
Vag Delivery Note Vag Delivery Note Date of Delivery: 04/15/21 Preoperative Diagnosis: Bela Duff is a 21 /Para 2 /1 ,Gestational Age 40 4/7 for post dates induction of labor Postoperative Diagnosis: Same Surgeon: DENISE EDGAR Anesthesia: epidural Delivery Type: Findings: Viable male , apgars pending, weight 8#2ounces Lacerations: 1st degree Intact placenta with 3 vessel cord. Nuchal cord x 1 reduced. Shoulder dystocia x 40 seconds. Estimated Blood Loss: 250 ml Complications: None Condition: Stable Description of Procedure: The patient is a 21 year old female who presented for post dates induction of labor. She was admitted and informed consent was obtained. Her labor course was remarkable for AROM and pitocin. She progressed to complete dilatation and began to push. She was then set up for delivery. She had difficulty pushing due to exhaustion and stopped pushing as directed. The infant's head was delivered atraumatically in the RADHA position. There was a nuchal cord x 1 reduced prior to delivery. The shoulders and remainder of the infant's body were then delivered without difficulty (see shoulder dystocia note). Upon delivery, the head was held below the level of the perineum and the mouth and nares were bulb suctioned. The cord was doubly clamped and cut and the infant was handed off to the pediatric staff. An intact placenta with 3-vessel cord delivered via Kylah and there was found to be minimal bleeding.~ Vigorous fundal massage was performed and the fundus was found to be firm. IV oxytocin was given. Examination of the vagina and perineum revealed a small perineal (1st deg) laceration and hymenal tear not repaired. Following the delivery, sponge, instrument and needle counts were correct. Mom and baby were both in stable condition in the labor suite. Vitals - Labs Vital Signs - I&O Vital Signs Date Time Temp Pulse Resp B/P (MAP) Pulse Ox O2 Delivery O2 Flow Rate FiO2 04/15/21 17:15 100 18 118/75 (89) Room Air 04/15/21 17:00 36.3 74 18 118/67 (84) Room Air 04/15/21 16:45 79 18 107/60 (76) Room Air 04/15/21 16:33 81 18 112/56 (74) Room Air 04/15/21 16:30 80 18 120/68 (85) Room Air 04/15/21 16:27 93 18 126/65 (85) Room Air 04/15/21 16:24 82 18 123/72 (89) Room Air 04/15/21 16:21 90 18 134/67 (89) Room Air 04/15/21 16:18 80 18 128/72 (90) Room Air 04/15/21 16:15 87 18 124/65 (84) Room Air 04/15/21 16:12 75 18 135/68 (90) Room Air 04/15/21 16:05 83 18 127/65 (85) Room Air 04/15/21 15:50 77 18 131/82 (98) Room Air 04/15/21 15:35 36.8 87 18 148/80 (102) Room Air 04/15/21 15:20 70 18 140/74 (96) Room Air 04/15/21 15:05 75 18 107/57 (74) Room Air 04/15/21 14:50 84 18 98/54 (69) Room Air 04/15/21 14:35 77 18 107/56 (73) Room Air 04/15/21 14:20 86 18 121/61 (81) Room Air 04/15/21 14:10 36.7 04/15/21 14:05 83 18 118/59 (78) Room Air 04/15/21 13:50 86 18 121/57 (78) Room Air 04/15/21 13:35 74 18 137/87 (104) Room Air 04/15/21 13:20 70 18 144/83 (103) Room Air 04/15/21 13:05 76 18 132/83 (99) Room Air 04/15/21 12:50 78 18 117/59 (78) Room Air 04/15/21 12:35 83 18 115/59 (77) Room Air 04/15/21 12:22 78 18 106/55 (72) Room Air 04/15/21 12:18 80 18 113/56 (75) Room Air 04/15/21 12:05 36.3 04/15/21 11:50 82 18 112/59 (76) Room Air 04/15/21 11:35 83 18 113/62 (79) Room Air 04/15/21 11:20 84 18 105/58 (74) Room Air 04/15/21 11:05 80 18 118/56 (76) Room Air 04/15/21 10:50 68 18 111/56 (74) Room Air 04/15/21 10:35 81 18 120/69 (86) Room Air 04/15/21 10:18 98 18 104/63 (77) 96 Room Air 04/15/21 10:13 99 18 111/58 (75) 97 Room Air 04/15/21 10:08 78 18 120/56 (77) 96 Room Air 04/15/21 10:03 36.3 93 18 127/61 (83) 97 Room Air 04/15/21 09:57 91 18 123/67 (85) 96 Room Air 04/15/21 09:50 87 18 126/70 (88) 97 Room Air 04/15/21 09:47 92 18 127/71 (89) 97 Room Air 04/15/21 09:41 92 18 122/58 (79) 97 Room Air 04/15/21 09:38 92 18 120/58 (78) 98 Room Air 04/15/21 09:35 88 18 122/61 (81) 98 Room Air 04/15/21 09:32 94 18 129/58 (81) 98 Room Air 04/15/21 09:29 87 18 126/64 (84) Room Air 04/15/21 09:26 94 18 125/69 (87) 97 Room Air 04/15/21 09:23 88 18 125/72 (89) 98 Room Air 04/15/21 09:20 99 18 134/72 (92) Room Air 04/15/21 09:17 88 18 128/69 (88) Room Air 04/15/21 09:10 93 18 118/86 (97) 98 Room Air 04/15/21 07:30 36.4 108 20 97 Room Air Labs Laboratory Tests 04/15/21 07:50: White Blood Count 15.4H, Red Blood Count 5.08, Hemoglobin 12.2, Hematocrit 38, Mean Corpuscular Volume 74L, Mean Corpuscular Hemoglobin 24L, Mean Corpuscular Hemoglobin Concent 32, Red Cell Distribution Width 14.0, Platelet Count 190, Mean Platelet Volume 8.7L, Immature Granulocyte % (Auto) 1, Neutrophils (%) (Auto) 78H, Lymphocytes (%) (Auto) 15, Monocytes (%) (Auto) 5, Eosinophils (%) (Auto) 1, Basophils (%) (Auto) 1, Neutrophils # (Auto) 12.0H, Lymphocytes # (Auto) 2.3, Monocytes # (Auto) 0.7, Eosinophils # (Auto) 0.2, Basophils # (Auto) 0.1, Immature Granulocyte # (Auto) 0.2H, Neutrophils % (Manual) 84, Lymphocytes % (Manual) 12, Monocytes % (Manual) 3, Eosinophils % (Manual) 1, Anisocytosis SLIGHT, Blood Morphology Comment 04/15/21 08:00: Urine Color YELLOW, Urine Clarity CLEAR, Urine pH 6.5, Urine Specific [place] 1.020, Urine Protein NEGATIVE, Urine Glucose (UA) NEGATIVE, Urine Ketones TRACEH , Urine Nitrite NEGATIVE, Urine Bilirubin NEGATIVE, Urine Urobilinogen 1.0, Urine Leukocyte Esterase TRACEH, Urine RBC (Auto) NEGATIVE, Urine RBC NONE, Urine WBC 2-5, Urine Squamous Epithelial Cells 2-5, Urine Crystals NONE, Urine Bacteria LARGEH, Urine Casts NONE, Urine Mucus SMALLH, Urine Culture Indicated YES DENISE EDGAR DO Apr 15, 2021 18:29
[2021-04-15] MEDS ORDERED: MEASLES,MUMPS,RUBELLA 1 EA INJ SQ ONE (18:30)
[2021-04-15] MEDS ORDERED: BENZOCAINE/MENTHOL (DERMOPLAST) 56 ML CAN TP PRN (18:30)
[2021-04-15] MEDS ORDERED: TETANUS,DIPTH,PERTUSS P/F (BOOSTRIX) 0.5 ML VIAL IM ONE (18:30)
[2021-04-15] MEDS ORDERED: WITCH HAZEL(TUCKS) 40 EA JAR TOP PRN (18:30)
--- NOTE | 2021-04-15 18:30 | OB Shoulder Dystocia Record ---
Shoulder Dystocia Note Shoulder Dystocia Start Time of Delivery of HEAD: 18:02 Time shoulder dystocia called: 18:02 HOB in lowered position: Yes Time of delivery of BODY: 18:02 (42 seconds) Positional Maneuvers Frank, Suprapubic: Right DENISE EDGAR DO Apr 15, 2021 18:30
[2021-04-15 18:35] LABS: ABG BASE EXCESS -5.2 MMOL/L (-2.5-2.5); ABG OXYGEN SATURATION 4 % (94-100)
[2021-04-15 18:36] LABS: ABG PCO2 78 MMHG (35-45); ABG PO2 8 MMHG (79-93)
[2021-04-15] MEDS: OXYTOCIN PRE-MIX DRIP 500 ML IV SCH ×2 (18:40→19:15)
[2021-04-15] MEDS: IBUPROFEN 600 MG (MOTRIN) TAB PO SCH (20:28)
[2021-04-15] MEDS: DOCUSATE SODIUM 100 MG (COLACE) CAP PO SCH (23:24)
[2021-04-15] MEDS: CATHETER FLUSH 10 ML SYR IV SCH ×3 (23:24→23:25)
[2021-04-15] MEDS: ACETAMINOPHEN 500 MG TAB (TYLENOL) PO SCH (23:25)
[2021-04-16] VITALS: BP 110/62
[2021-04-16] MEDS: IBUPROFEN 600 MG (MOTRIN) TAB PO SCH ×4 (01:00→17:42)
[2021-04-16 04:00] VITALS: BP 115/65
[2021-04-16] MEDS: CATHETER FLUSH 10 ML SYR IV SCH ×2 (05:19)
[2021-04-16] MEDS: ACETAMINOPHEN 500 MG TAB (TYLENOL) PO SCH ×2 (05:19→12:24)
[2021-04-16 06:27] LABS: BASOPHILS # (AUTO) 0.1 10^3/uL (0.0-0.1); BASOPHILS % (AUTO) 0 % (0-10); EOSINOPHILS # (AUTO) 0.1 10^3/uL (0.0-0.3); EOSINOPHILS % (AUTO) 1 % (0-10); HEMATOCRIT 36 % (35-52); HEMOGLOBIN 11.4 g/dL (11.5-16.0); LYMPHOCYTES # (AUTO) 2.8 10^3/uL (1.0-4.0); LYMPHOCYTES % (AUTO) 15 % (12-44); MEAN CORPUSCULAR HEMOGLOBIN 24 pg (25-34); MEAN CORPUSCULAR HGB CONC 32 g/dL (32-36); MEAN CORPUSCULAR VOLUME 76 fL (80-99); MEAN PLATELET VOLUME 9.1 fL (9.0-12.2); MONOCYTES # (AUTO) 1.1 10^3/uL (0.0-1.0); MONOCYTES % (AUTO) 6 % (0-12); NEUTROPHILS # (AUTO) 14.6 10^3/uL (1.8-7.8); NEUTROPHILS % (AUTO) 78 % (42-75); PLATELET COUNT 173 10^3/uL (130-400); WHITE BLOOD COUNT 18.8 10^3/uL (4.3-11.0)
[2021-04-16] MEDS ORDERED: PRENATAL VITAMIN 1 EA TAB PO SCH (07:00)
--- NOTE | 2021-04-16 07:11 | Anesthesia-Regional Post-Op ---
Regional Patient Condition Mental Status: Alert, Oriented x3 Circulation: Same as Pre-Op Headache: Absent Sensation: Full Recovery Motor Block: Absent Post Op Complications Complications None Follow Up Care/Instructions Patient Instructions None needed. Anesthesia/Patient Condition Patient is doing well, no complaints, stable vital signs, no apparent adverse anesthesia problems. No complications reported per nursing. PATRICIA MEHTA CRNA Apr 16, 2021 07:11
[2021-04-16 08:26] VITALS: BP 115/65
[2021-04-16] MEDS ORDERED: FERROUS SULF 325 MG (IRON) TAB PO SCH (09:00)
[2021-04-16] MEDS: DOCUSATE SODIUM 100 MG (COLACE) CAP PO SCH (09:25)
--- NOTE | 2021-04-16 09:54 | Postpartum Progress Note ---
Note Note Day # 1 s/p Subjective: Patient is without complaints. Ambulating, voiding. Tolerating a regular diet w ithout nausea or vomiting. Normal lochia. Pain is well controlled with oral pain medications. breast feeding. Objective: Vital Sign - Last 24 Hours 04/15/21 04/15/21 04/15/21 04/15/21 09:57 10:03 10:08 10:13 Temp 36.3 Pulse 91 93 78 99 Resp 18 18 18 18 B/P (MAP) 123/67 (85) 127/61 (83) 120/56 (77) 111/58 (75) Pulse Ox 96 97 96 97 O2 Delivery Room Air Room Air Room Air Room Air 04/15/21 04/15/21 04/15/21 04/15/21 10:18 10:35 10:50 11:05 Pulse 98 81 68 80 Resp 18 18 18 18 B/P (MAP) 104/63 (77) 120/69 (86) 111/56 (74) 118/56 (76) Pulse Ox 96 O2 Delivery Room Air Room Air Room Air Room Air 04/15/21 04/15/21 04/15/21 04/15/21 11:20 11:35 11:50 12:05 Temp 36.3 Pulse 84 83 82 Resp 18 18 18 B/P (MAP) 105/58 (74) 113/62 (79) 112/59 (76) O2 Delivery Room Air Room Air Room Air 04/15/21 04/15/21 04/15/21 04/15/21 12:18 12:22 12:35 12:50 Pulse 80 78 83 78 Resp 18 18 18 18 B/P (MAP) 113/56 (75) 106/55 (72) 115/59 (77) 117/59 (78) O2 Delivery Room Air Room Air Room Air Room Air 04/15/21 04/15/21 04/15/21 04/15/21 13:05 13:20 13:35 13:50 Pulse 76 70 74 86 Resp 18 18 18 18 B/P (MAP) 132/83 (99) 144/83 (103) 137/87 (104) 121/57 (78) O2 Delivery Room Air Room Air Room Air Room Air 04/15/21 04/15/21 04/15/21 04/15/21 14:05 14:10 14:20 14:35 Temp 36.7 Pulse 83 86 77 Resp 18 18 18 B/P (MAP) 118/59 (78) 121/61 (81) 107/56 (73) O2 Delivery Room Air Room Air Room Air 04/15/21 04/15/21 04/15/21 04/15/21 14:50 15:05 15:20 15:35 Temp 36.8 Pulse 84 75 70 87 Resp 18 18 18 18 B/P (MAP) 98/54 (69) 107/57 (74) 140/74 (96) 148/80 (102) O2 Delivery Room Air Room Air Room Air Room Air 04/15/21 04/15/21 04/15/21 04/15/21 15:50 16:05 16:12 16:15 Pulse 77 83 75 87 Resp 18 18 18 18 B/P (MAP) 131/82 (98) 127/65 (85) 135/68 (90) 124/65 (84) O2 Delivery Room Air Room Air Room Air Room Air 04/15/21 04/15/21 04/15/21 04/15/21 16:18 16:21 16:24 16:27 Pulse 80 90 82 93 Resp 18 18 18 18 B/P (MAP) 128/72 (90) 134/67 (89) 123/72 (89) 126/65 (85) O2 Delivery Room Air Room Air Room Air Room Air 04/15/21 04/15/21 04/15/21 04/15/21 16:30 16:33 16:45 17:00 Temp 36.3 Pulse 80 81 79 74 Resp 18 18 18 18 B/P (MAP) 120/68 (85) 112/56 (74) 107/60 (76) 118/67 (84) O2 Delivery Room Air Room Air Room Air Room Air 04/15/21 04/15/21 04/15/21 04/15/21 17:15 17:25 17:40 17:55 Pulse 100 77 90 141 Resp 18 18 18 18 B/P (MAP) 118/75 (89) 125/70 (88) 125/69 (87) 129/68 (88) O2 Delivery Room Air Room Air Room Air Room Air 04/15/21 04/15/21 04/15/21 04/15/21 18:10 18:25 18:30 18:40 Temp 36.8 Pulse 115 100 96 Resp 18 18 18 B/P (MAP) 140/73 (95) 117/77 (90) 117/69 (85) O2 Delivery Room Air Room Air Room Air 04/15/21 04/15/21 04/16/21 04/16/21 18:55 20:00 00:00 04:00 Temp 36.8 36.6 Pulse 82 86 89 82 Resp 18 18 18 18 B/P (MAP) 121/58 (79) 118/60 (79) 110/62 (78) 115/65 (82) O2 Delivery Room Air Room Air Room Air Room Air 04/16/21 08:26 Temp 36.6 Pulse 88 Resp 18 B/P (MAP) 115/65 (82) Pulse Ox 98 O2 Delivery Room Air Intake and Output 04/15/21 04/15/21 04/16/21 15:00 23:00 07:00 Intake Total 500 ml 700 ml Balance 500 ml 700 ml Laboratory Tests Test 04/15/21 18:05 04/16/21 06:17 Range/Units Arterial Blood Partial Pressure CO2 78 *H 35-45 MMHG Arterial Blood Partial Pressure O2 8 *L 79-93 MMHG Arterial Blood HCO3 23 23-27 MMOL/L Arterial Blood Oxygen Saturation 4 L 94-100 % Arterial Blood Base Excess -5.2 L -2.5-2.5 MMOL/L Cord Arterial Blood pH 7.10 L 7.35-7.45 Blood Gas Inspired Oxygen NA White Blood Count 18.8 H 4.3-11.0 10^3/uL Red Blood Count 4.68 3.80-5.11 10^6/uL Hemoglobin 11.4 L 11.5-16.0 g/dL Hematocrit 36 35-52 % Mean Corpuscular Volume 76 L 80-99 fL Mean Corpuscular Hemoglobin 24 L 25-34 pg Mean Corpuscular Hemoglobin Concent 32 32-36 g/dL Red Cell Distribution Width 14.3 10.0-14.5 % Platelet Count 173 130-400 10^3/uL Mean Platelet Volume 9.1 9.0-12.2 fL Immature Granulocyte % (Auto) 1 % Neutrophils (%) (Auto) 78 H 42-75 % Lymphocytes (%) (Auto) 15 12-44 % Monocytes (%) (Auto) 6 0-12 % Eosinophils (%) (Auto) 1 0-10 % Basophils (%) (Auto) 0 0-10 % Neutrophils # (Auto) 14.6 H 1.8-7.8 10^3/uL Lymphocytes # (Auto) 2.8 1.0-4.0 10^3/uL Monocytes # (Auto) 1.1 H 0.0-1.0 10^3/uL Eosinophils # (Auto) 0.1 0.0-0.3 10^3/uL Basophils # (Auto) 0.1 0.0-0.1 10^3/uL Immature Granulocyte # (Auto) 0.2 H 0.0-0.1 10^3/uL Physical Exam: General - Alert and oriented, no apparent distress Abdomen - Soft, appropriately tender to palpation, non-distended, fundus firm at umbilicus Extremities - no edema, negative Adia's bilaterally Assessment: 1. post- day # 1, status post spontaneous vaginal delivery. Recovering well, hemodynamically stable Plan: Routine care. Encourage breast feeding. Encourage ambulation. Ferrous sulfate supplementation. Plan for discharge tomorrow Vitals - Labs Vital Signs - I&O Vital Signs Date Time Temp Pulse Resp B/P (MAP) Pulse Ox O2 Delivery O2 Flow Rate FiO2 04/16/21 08:26 36.6 88 18 115/65 (82) 98 Room Air 04/16/21 04:00 36.6 82 18 115/65 (82) Room Air 04/16/21 00:00 36.8 89 18 110/62 (78) Room Air 04/15/21 20:00 86 18 118/60 (79) Room Air 04/15/21 18:55 82 18 121/58 (79) Room Air 04/15/21 18:40 96 18 117/69 (85) Room Air 04/15/21 18:30 36.8 04/15/21 18:25 100 18 117/77 (90) Room Air 04/15/21 18:10 115 18 140/73 (95) Room Air 04/15/21 17:55 141 18 129/68 (88) Room Air 04/15/21 17:40 90 18 125/69 (87) Room Air 04/15/21 17:25 77 18 125/70 (88) Room Air 04/15/21 17:15 100 18 118/75 (89) Room Air 04/15/21 17:00 36.3 74 18 118/67 (84) Room Air 04/15/21 16:45 79 18 107/60 (76) Room Air 04/15/21 16:33 81 18 112/56 (74) Room Air 04/15/21 16:30 80 18 120/68 (85) Room Air 04/15/21 16:27 93 18 126/65 (85) Room Air 04/15/21 16:24 82 18 123/72 (89) Room Air 04/15/21 16:21 90 18 134/67 (89) Room Air 04/15/21 16:18 80 18 128/72 (90) Room Air 04/15/21 16:15 87 18 124/65 (84) Room Air 04/15/21 16:12 75 18 135/68 (90) Room Air 04/15/21 16:05 83 18 127/65 (85) Room Air 04/15/21 15:50 77 18 131/82 (98) Room Air 04/15/21 15:35 36.8 87 18 148/80 (102) Room Air 04/15/21 15:20 70 18 140/74 (96) Room Air 04/15/21 15:05 75 18 107/57 (74) Room Air 04/15/21 14:50 84 18 98/54 (69) Room Air 04/15/21 14:35 77 18 107/56 (73) Room Air 04/15/21 14:20 86 18 121/61 (81) Room Air 04/15/21 14:10 36.7 04/15/21 14:05 83 18 118/59 (78) Room Air 04/15/21 13:50 86 18 121/57 (78) Room Air 04/15/21 13:35 74 18 137/87 (104) Room Air 04/15/21 13:20 70 18 144/83 (103) Room Air 04/15/21 13:05 76 18 132/83 (99) Room Air 04/15/21 12:50 78 18 117/59 (78) Room Air 04/15/21 12:35 83 18 115/59 (77) Room Air 04/15/21 12:22 78 18 106/55 (72) Room Air 04/15/21 12:18 80 18 113/56 (75) Room Air 04/15/21 12:05 36.3 04/15/21 11:50 82 18 112/59 (76) Room Air 04/15/21 11:35 83 18 113/62 (79) Room Air 04/15/21 11:20 84 18 105/58 (74) Room Air 04/15/21 11:05 80 18 118/56 (76) Room Air 04/15/21 10:50 68 18 111/56 (74) Room Air 04/15/21 10:35 81 18 120/69 (86) Room Air 04/15/21 10:18 98 18 104/63 (77) 96 Room Air 04/15/21 10:13 99 18 111/58 (75) 97 Room Air 04/15/21 10:08 78 18 120/56 (77) 96 Room Air 04/15/21 10:03 36.3 93 18 127/61 (83) 97 Room Air 04/15/21 09:57 91 18 123/67 (85) 96 Room Air I & O 04/16/21 07:00 Intake Total 1200 ml Balance 1200 ml Labs Laboratory Tests 04/15/21 18:05: Arterial Blood Partial Pressure CO2 78*H, Arterial Blood Partial Pressure O2 8*L , Arterial Blood HCO3 23, Arterial Blood Oxygen Saturation 4L, Arterial Blood Base Excess -5.2L, Cord Arterial Blood pH 7.10L, Blood Gas Inspired Oxygen NA 04/16/21 06:17: White Blood Count 18.8H, Red Blood Count 4.68, Hemoglobin 11.4L, Hematocrit 36, Mean Corpuscular Volume 76L, Mean Corpuscular Hemoglobin 24L, Mean Corpuscular Hemoglobin Concent 32, Red Cell Distribution Width 14.3, Platelet Count 173, Mean Platelet Volume 9.1, Immature Granulocyte % (Auto) 1, Neutrophils (%) (Auto) 78H, Lymphocytes (%) (Auto) 15, Monocytes (%) (Auto) 6, Eosinophils (%) (Auto) 1, Basophils (%) (Auto) 0, Neutrophils # (Auto) 14.6H, Lymphocytes # (Auto) 2.8, Monocytes # (Auto) 1.1H, Eosinophils # (Auto) 0.1, Basophils # (Auto) 0.1, Immature Granulocyte # (Auto) 0.2H DENISE EDGAR DO Apr 16, 2021 09:54
[2021-04-16] MEDS ORDERED: IBUP-844 PO (12:24)
[2021-04-16] MEDS ORDERED: ACET-93 PO (12:24)
[2021-04-16] MEDS ORDERED: DOCU100C37 PO (12:24)
--- NOTE | 2021-04-16 12:25 | Discharge Inst-Women's Service ---
Discharge Inst-Women's Serv Depart Medication/Instructions New, Converted or Re-Newed RX: Transmitted to Pharmacy Final Diagnosis 40 week gestation induction of labor vaginal delivery shoulder dystocia epidural Problems Reviewed?: Yes Consults/Follow Up Additional Follow Up: Yes Activity Activity: Activity as Tolerated Driving Instructions: You May Drive NO SMOKING: NO SMOKING Nothing Inside Vagina: No Douching, No [place], No Tampons Diet Discharge Diet: No Restrictions Symptoms to Report to : Bleeding Excessive, Pain Increased, Fever Over 101 Degrees F, Vaginal Bleeding Increase, Cramps in Feet or Legs, Vaginal Discharge Foul For Any Problems or Questions: Contact Your Physician DENISE EDGAR DO Apr 16, 2021 12:25
[2021-04-16 13:04] VITALS: BP 132/72
[2021-04-16 16:00] VITALS: BP 123/66
== END 2021-04-16 20:30 | disposition home or self-care (01) | DRG 807 ==
LOC: LDRP 07:10
PROVIDERS: ADMIT Obstetrics & Gynecology; ATTEND Obstetrics & Gynecology
PROC: 10E0XZZ Delivery of Products of Conception, External Approach (ICD-10-PCS; principal; 2021-04-15)
PROC: 3E033VJ Introduction of Other Hormone into Peripheral Vein, Percutaneous Approach (ICD-10-PCS; 2021-04-15)
DX: O48.0 Post-term pregnancy (principal); Z37.0 Single live birth; Z3A.40 40 weeks gestation of pregnancy; O70.0 First degree perineal laceration during delivery; O66.0 Obstructed labor due to shoulder dystocia; O69.81X0 Labor and delivery complicated by cord around neck, without compression, not applicable or unspecified
CPT/HCPCS: 36415; 81000; 82805; 85007; 85025; 85027; 86850; 86900; 86901; 87088

== ENCOUNTER → 2021-05-09 | Outpatient (CLI) | payer OTHER ==
[~2021-05-09] MED LIST changes: +ACET-93 PO; +DOCU100C37 PO; +IBUP-844 PO
== END ==
LOC: LABNPT 12:19
PROVIDERS: ATTEND Family Medicine
DX: N89.8 Other specified noninflammatory disorders of vagina (principal)
CPT/HCPCS: 87210

== ENCOUNTER 2023-01-12 01:41 | Emergency (ER) | payer OTHER ==
[~2023-01-12] VITALS: Ht 154.9 cm; Wt 103.9 kg
[~2023-01-12 01:41] MED LIST changes: +ALBU8.5H6 IH; -RT-ALBUINH IH
[2023-01-12] MEDS ORDERED: ONDANSETRON 4 MG ORAL DISSOLVE TABLET PO STA (01:54)
--- NOTE | 2023-01-12 01:59 | ED Back Pain ---
General Chief Complaint: Back Problems Stated Complaint: SEVERE BACK PAIN|RIGHT SIDE SHARP PAIN Source of Information: Patient Exam Limitations: No Limitations History of Present Illness Date Seen by Provider: Jan 12, 2023 Time Seen by Provider: 01:45 Initial Comments 22-year-old female with no pertinent past medical history coming in due to initially right-sided flank pain, now bilateral. This started a few hours ago, does not radiate anywhere, does have associated nausea, no vomiting. Denies any fever, dysuria, hematuria, vaginal bleeding, vaginal discharge, abdominal pain, diarrhea, or any other concerns. Had a normal bowel movement recently. LMP was less than a month ago. Allergies and Home Medications Allergies Coded Allergies: No Known Drug Allergies (Unverified , 09/24/18) Patient Home Medication List Home Medication List Reviewed: Yes Ketorolac Tromethamine (Ketorolac Tromethamine) 10 Mg Tablet, 10 MG PO Q8H PRN for PAIN SEVERE Prescribed by: CRIS VERDIN on 01/12/23220 Ondansetron (Ondansetron Odt) 4 Mg Tab.rapdis, 4 MG SL Q6H PRN for NAUSEA/ VOMITING Prescribed by: CRIS VERDIN on 01/12/23220 Discontinued Medications Acetaminophen (Acetaminophen) 500 Mg Tablet, 1,000 MG PO Q8HR Discontinued Reason: Referral/FU Appt-Addtl Prescribed by: DENISE EDGAR on 04/16/211223 Last Action: Discontinued Docusate Sodium (Docusate Sodium) 100 Mg Capsule, 100 MG PO BID Discontinued Reason: Referral/FU Appt-Addtl Prescribed by: DENISE EDGAR on 04/16/211223 Last Action: Discontinued Ibuprofen (Ibu) 600 Mg Tablet, 600 MG PO Q6H Discontinued Reason: Referral/FU Appt-Addtl Prescribed by: DENISE EDGAR on 04/16/211223 Last Action: Discontinued Review of Systems Constitutional: No fever EENTM: no symptoms reported Respiratory: no symptoms reported Cardiovascular: no symptoms reported Gastrointestinal: nausea; No vomiting Genitourinary: see HPI Musculoskeletal: see HPI Skin: no symptoms reported Psychiatric/Neurological: No Symptoms Reported Past Yrkrqvg-Nmshls-Oubbda Hx Patient Social History Tobacco Use?: No Use of E-Cig and/or Vaping dev: Yes Use of E-Cig and/or Vaping Fidel: Former User Substance use?: No Alcohol Use?: Yes Alcohol Frequency: Rarely Immunizations Up To Date Tetanus Booster (TDap): Less than 5yrs Influenza Vaccine Up-to-Date: No; Not Current First/Initial COVID19 Vaccinat: Unvaccinated Seasonal Allergies Seasonal Allergies: No Past Medical History Surgery/Hospitalization HX: Denies Surgeries: Yes Tonsillectomy Respiratory: No Cardiac: No Neurological: No Genitourinary: No Gastrointestinal: No Musculoskeletal: No Endocrine: No HEENT: No Cancer: No Psychosocial: No Integumentary: No Blood Disorders: No Adverse Reaction/Blood Tranf: No Physical Exam Vital Signs Vital Signs - First Documented 01/12/23 01:44 Temp 36.0 Pulse 90 Resp 16 B/P (MAP) 134/79 (97) Pulse Ox 100 O2 Delivery Room Air Capillary Refill : Height, Weight, BMI Height: 5'1.00" Weight: 197lbs. oz. 89.232799mf; 45.26 BMI Method:Stated General Appearance: No Apparent Distress, WD/WN HEENT: PERRL/EOMI, Normal ENT Inspection, Pharynx Normal Neck: Full Range of Motion, Normal Inspection, Non Tender, Supple Cardiovascular: Regular Rate, Rhythm, No Edema, Normal Peripheral Pulses Respiratory: Chest Non Tender, Lungs Clear, Normal Breath Sounds, No Accessory Muscle Use, No Respiratory Distress Gastrointestinal: Normal Bowel Sounds, Non Tender, Soft; No Distended, No Guarding Back: Normal Inspection, No Vertebral Tenderness, CVA Tenderness (R) Extremity: Normal Capillary Refill, Normal Inspection, Normal Range of Motion, Non Tender, No Calf Tenderness, No Pedal Edema Neurologic/Psychiatric: Alert, No Motor/Sensory Deficits, Normal Mood/Affect Skin: Normal Color, Warm/Dry Progress/Results/Core Measures Results/Orders Lab Results Laboratory Tests Test 01/12/23 01:49 Range/Units Urine Color YELLOW Urine Clarity SL CLOUDY Urine pH 6.0 5-9 Urine Specific [place] >=1.030 1.016-1.022 Urine Protein NEGATIVE NEGATIVE Urine Glucose (UA) NEGATIVE NEGATIVE Urine Ketones NEGATIVE NEGATIVE Urine Nitrite NEGATIVE NEGATIVE Urine Bilirubin NEGATIVE NEGATIVE Urine Urobilinogen 0.2 < = 1.0 MG/DL Urine Leukocyte Esterase NEGATIVE NEGATIVE Urine RBC (Auto) NEGATIVE NEGATIVE Urine RBC RARE /HPF Urine WBC 0-2 /HPF Urine Squamous Epithelial Cells 2-5 /HPF Urine Crystals NONE /LPF Urine Bacteria MODERATE H /HPF Urine Casts NONE /LPF Urine Mucus MODERATE H /LPF Urine Culture Indicated NO My Orders Orders - CRIS VERDIN MD Urine Bedside (01/12/23 01:54) Ua Culture If Indicated (01/12/23 01:54) Ct Abdomen/Pelvis Wo (01/12/23 01:54) Ketorolac Injection (Ketorolac Injection (01/12/23 02:00) Ondansetron Oral Dissolve Tab (Ondanset (01/12/23 01:54) Medications Given in ED Current Medications Medications Dose Ordered Sig/Leobardo Route Start Time Stop Time Status Last Admin Dose Admin Ketorolac Tromethamine 15 mg ONCE ONCE IM 01/12/23 02:00 01/12/23 02:01 DC 01/12/23 02:10 15 MG Vital Signs/I&O 01/12/23 01/12/23 01:44 02:10 Temp 36.0 36.0 Pulse 90 Resp 16 B/P (MAP) 134/79 (97) Pulse Ox 100 O2 Delivery Room Air Progress Progress Note : Progress Note 22-year-old female with above history coming in due to right flank pain. ABCs were intact and vitals were stable on presentation. Physical exam with some right flank tenderness, no abdominal tenderness. Urinalysis was negative for infection and her test was negative. CT abdomen pelvis ordered and interpreted by me showing no obvious kidney stone or hydronephrosis. She does have gallstones without any secondary signs of cholecystitis. I did a [id number] ultrasound as well, she is not tender over her gallbladder, no pericholecystic fluid, no gallbladder wall thickening. It is possible this is symptomatic cholelithiasis as well presenting unusually. She did have cheeseburgers for dinner tonight which would fit narrative. Per the overnight stat rad read, she does have some trace amount of fluid in the cul-de-sac which is nonspecific and may reflect a ruptured ovarian cyst or follicle. I did a repeat abdominal exam showing no right upper quadrant pain and no pelvic pain. She was given IM Toradol and p.o. Zofran here. She says this took her back pain away completely which is reassuring. I believe she is stable for discharge with outpatient follow-up. She was sent home with strict return precautions. Diagnostic Imaging Diagonstic Imaging: CT (abd/pelvis) Departure Impression Primary Impression: Right flank pain Additional Impression: Gallstones Disposition: 01 HOME, SELF-CARE Condition: Stable Departure-Patient Inst. Referrals: FRED BEVERLY,LOCAL PHYSICIAN (PCP) Primary Care Physician Patient Instructions: Flank Pain ED, Gallstones ED Add. Discharge Instructions: There are no obvious kidney stones on that right side or left side. Your urine also looks normal with no kidney infection. It is possible this is musculoskele raven in nature, or it is possible this is an atypical gallbladder attack. You do have gallstones on imaging, but no secondary signs of infection of your gallbladder. We recommend normal ibuprofen or Tylenol as needed for pain. Ketorolac was sent to your pharmacy which is a pain medicine. If you take this, do not mix it with ibuprofen or naproxen. You can mix it with Tylenol/mike taminophen. Nausea medicines were also sent to [facility] pharmacy. You can also call Dr. Beverly, the surgeon in [place], to evaluate you further for potential gallbladder disease. Scripts Ketorolac Tromethamine (Ketorolac Tromethamine) 10 Mg Tablet 10 MG PO Q8H PRN for PAIN SEVERE for 4 Days, #12 TAB Prov: CRIS VERDIN MD 01/12/23 Ondansetron (Ondansetron Odt) 4 Mg Tab.rapdis 4 MG SL Q6H PRN for NAUSEA/VOMITING for 5 Days, #20 TAB Prov: CRIS VERDIN MD 01/12/23 Work/School Note: Work Release Form Date Seen in the Emergency Department: Jan 12, 2023 Return to Work: Jan 13, 2023 Restrictions: No Restrictions CRIS VERDIN MD Jan 12, 2023 01:59
[2023-01-12] MEDS ORDERED: KETOROLAC INJ 15 MG/ML VIAL IM ONE (02:00)
[2023-01-12 02:03] LABS: BILIRUBIN,URINE NEGATIVE (NEGATIVE); CLARITY,URINE SL CLOUDY; COLOR,URINE YELLOW; GLUCOSE, URINE (UA) NEGATIVE (NEGATIVE); KETONES,URINE NEGATIVE (NEGATIVE); LEUKOCYTE ESTERASE ,URINE NEGATIVE (NEGATIVE); NITRITE,URINE NEGATIVE (NEGATIVE); PROTEIN,URINE NEGATIVE (NEGATIVE)
[2023-01-12 02:11] LABS: RBC,URINE RARE /HPF
[2023-01-12 02:12] LABS: BACTERIA,URINE MODERATE /HPF; WBC,URINE 0-2 /HPF
[2023-01-12] MEDS ORDERED: KETO10TA PO (02:21)
[2023-01-12] MEDS ORDERED: ONDA4TAB11 SL (02:21)
[2023-01-12 02:50] VITALS: BP 130/75
--- NOTE | 2023-01-12 07:28 | Diagnostic Imaging Report ---
PROCEDURE: CT abdomen and pelvis without contrast. TECHNIQUE: Multiple contiguous axial images were obtained through the abdomen and pelvis without the use of intravenous contrast. Auto Exposure Controls were utilized during the CT exam to meet ALARA standards for radiation dose reduction. INDICATION: Right flank pain. No prior studies are available for comparison. The lung bases are clear. The liver is unremarkable. There are small stones in the gallbladder. No biliary duct dilatation is identified. The pancreas and spleen are unremarkable. No adrenal mass is detected. No renal calculi or hydronephrosis is identified. Aorta is nonaneurysmal. Bowel loops are normal caliber. Appendix is unremarkable. No inflammatory changes are seen. The uterus and bladder are unremarkable. No significant free fluid in abdomen or pelvis is identified. IMPRESSION: Cholelithiasis. No other significant abnormality is detected. Dictated by: Dictated on workstation # [id number]
== END 2023-01-12 02:50 | disposition home or self-care (01) ==
LOC: EDUNIT# 01:41 → ER FS 01:42
DX: K80.20 Calculus of gallbladder without cholecystitis without obstruction (principal); Z87.891 Personal history of nicotine dependence
CPT/HCPCS: 74176; 81000; 84703; 96372